=== PATIENT | male | born 1995 | race Caucasian/White ===

== ENCOUNTER → 2019-08-20 | Outpatient (CLI) | payer BC ==
[~2019-08-20] VITALS: Ht 70 cm; Wt 86.4 kg
[~2019-08-20] MED LIST: GADOBUTROL 7.5 MMOL/7.5 ML (GADAVIST) VIAL IV ONE; IOHEXOL 300 MG/ML 50 ML (OMNIPAQUE 300) VIAL IV ONE
--- NOTE | 2019-08-20 12:56 | Diagnostic Imaging Report ---
INDICATION: Left shoulder pain. Patient brought to the procedure and placed on table in the supine position. The left shoulder was prepped and draped in usual sterile fashion. Small amount of 1% lidocaine was utilized for local anesthesia. 21-gauge needle was advanced into the left shoulder place with its tip at the rotator interval. 50 mL solution of iodinated contrast, normal saline and gadolinium was injected under fluoroscopic observation. Needle was withdrawn and hemostasis was obtained. A total of 16 seconds of fluoroscopic time was utilized. Patient tolerated procedure well and was sent to MRI in satisfactory condition. IMPRESSION: Successful fluoroscopically assisted left shoulder injection of gadolinium contrast solution, as described. Dictated by: Dictated on workstation # [id number]
--- NOTE | 2019-08-21 08:47 | Diagnostic Imaging Report ---
PROCEDURE: MRI left joint upper extremity with contrast. TECHNIQUE: Multiplanar, multisequence contrast-enhanced MRI of the left upper extremity was accomplished. INDICATION: Injury shoulder, pain There are no prior studies available for comparison. On the coronal IR series, there is no abnormal signal arising from the rotator cuff to suggest a tear. The acromioclavicular joint does not appear to be hypertrophied and there is no significant narrowing of the outlet for the supraspinatous muscle. The biceps tendon and the subscapularis tendon appear to be intact. There is minimal irregularity of the labrum anteriorly. The labrum is otherwise intact. There is no abnormal signal arising from the osseous structures to suggest bone edema or fracture. IMPRESSION: 1. The rotator cuff is intact. 2. The acromioclavicular joint is not hypertrophied and there is no significant narrowing of the outlet for the supraspinatous muscle. 3. For the most part, the labrum appears to be intact. There is minimal irregularity of the anterior labrum. 4. There is no acute bony abnormality noted. Dictated by: Dictated on workstation # [id number]
== END ==
LOC: RAD 11:37
PROVIDERS: ATTEND Orthopaedic Surgery
DX: S43.432A Superior glenoid labrum lesion of left shoulder, initial encounter (principal); X58.XXXA Exposure to other specified factors, initial encounter
CPT/HCPCS: 23350; 73040; 73222